=== PATIENT | male | born 1995 | race Caucasian/White ===

== ENCOUNTER 2017-05-20 08:33 | Emergency (ER) | payer OTHER ==
[~2017-05-20] VITALS: Ht 170.2 cm; Wt 59.0 kg
[2017-05-20 08:34] VITALS: BP 142/88
== END 2017-05-20 09:03 | disposition home or self-care (01) ==
LOC: ED 08:56
DX: K08.89 Other specified disorders of teeth and supporting structures (principal); M19.90 Unspecified osteoarthritis, unspecified site
CPT/HCPCS: 99283

== ENCOUNTER 2018-01-01 17:38 | Emergency (ER) | payer OTHER ==
[~2018-01-01] VITALS: Ht 172.7 cm; Wt 57.0 kg
[2018-01-01 17:47] VITALS: BP 116/74
[2018-01-01] MEDS ORDERED: LIDOCAINE-MPF 1%, 5ML INFIL ONE (18:30)
[2018-01-01] MEDS ORDERED: LIDOCAINE-MPF 1%, 5ML ONE ×2 (18:56)
[2018-01-01] MEDS ORDERED: DIPH,PERTUSS(ACELL),TET VAC/PF 0.5 ML IM-VACC ONE ×2 (19:38→20:00)
[2018-01-01] MEDS ORDERED: BACITRACIN ZINC OINT 500U/GM, 0.9 GM ONE (19:52)
== END 2018-01-01 20:05 | disposition home or self-care (01) ==
LOC: ED 20:00
DX: S61.411A Laceration without foreign body of right hand, initial encounter (principal); W26.0XXA Contact with knife, initial encounter; Y93.89 Activity, other specified; Y92.098 Other place in other non-institutional residence as the place of occurrence of the external cause; Y99.8 Other external cause status
CPT/HCPCS: 12041; 90715; 96372; 99284

== ENCOUNTER 2018-04-08 00:39 | Emergency (ER) | payer OTHER ==
[~2018-04-08] VITALS: Ht 170.2 cm; Wt 68.0 kg
[2018-04-08] MEDS ORDERED: LIDOCAINE 1%-EPI 1:100K, 20ML SQ ONE (01:00)
[2018-04-08] MEDS ORDERED: LIDOCAINE 1%-EPI 1:100K, 30ML ONE (01:08)
[2018-04-08] MEDS ORDERED: KETAMINE 10 MG/ML, 20ML IV ONE (01:30)
[2018-04-08] MEDS ORDERED: KETAMINE 50 MG/ML, 10ML ONE (02:20)
[2018-04-08 06:32] VITALS: BP 121/74
== END 2018-04-08 07:49 | disposition home or self-care (01) ==
LOC: ED 07:16
DX: S06.0X0A Concussion without loss of consciousness, initial encounter (principal); S01.81XA Laceration without foreign body of other part of head, initial encounter; G89.11 Acute pain due to trauma; F15.10 Other stimulant abuse, uncomplicated; W01.0XXA Fall on same level from slipping, tripping and stumbling without subsequent striking against object, initial encounter; Y93.89 Activity, other specified; Y92.410 Unspecified street and highway as the place of occurrence of the external cause; Y99.8 Other external cause status
CPT/HCPCS: 12053; 70450; 72125; 99151; 99153

== ENCOUNTER 2018-08-29 02:37 | Emergency (ER) | payer OTHER ==
[~2018-08-29] VITALS: Ht 170.2 cm; Wt 60.5 kg
--- NOTE | 2018-08-29 02:50 | NUR ---
PT STATES HAx3 DAYS IN FRONT OF HEAD. STATES MILD PHOTOPHOBIA AND NAUSEA W/O HX OF SAME. STATES RECENT TOOTH INFECTIONx2 WEEKS AGO THAT HE WAS SEEN FOR AND CURRENTLY TAKING ABX FOR. DENIES ANY NEW STIMULANTS/INCREASE IN STIMULANTS. DENIES ANY INCREASED STRESSORS IN LIFE. VSS. CALL LIGHT WITHIN REACH.
[2018-08-29 02:52] VITALS: BP 130/82
[2018-08-29] MEDS ORDERED: AMOXICILLIN/CLAV 875-125MG TABLET PO ONE (02:59)
[2018-08-29] MEDS ORDERED: IBUPROFEN 600 MG TABLET PO ONE (03:00)
[2018-08-29] MEDS ORDERED: IBUPROFEN 600 MG TABLET ONE ×2 (03:10→03:13)
[2018-08-29] MEDS ORDERED: AMOXICILLIN/CLAV 875-125MG TABLET ONE (03:11)
== END 2018-08-29 03:36 | disposition home or self-care (01) ==
LOC: ED 03:15
DX: J01.10 Acute frontal sinusitis, unspecified (principal); H66.91 Otitis media, unspecified, right ear; F17.200 Nicotine dependence, unspecified, uncomplicated
CPT/HCPCS: 99283

== ENCOUNTER 2020-01-26 10:45 | Emergency (ER) | payer OTHER ==
[~2020-01-26] VITALS: Ht 170.2 cm; Wt 62.0 kg
[2020-01-26 11:01] VITALS: BP 130/85
== END 2020-01-26 11:30 | disposition home or self-care (01) ==
LOC: ED 11:28
DX: K02.9 Dental caries, unspecified (principal); K08.89 Other specified disorders of teeth and supporting structures; F17.200 Nicotine dependence, unspecified, uncomplicated
CPT/HCPCS: 99283